=== PATIENT | female | born 1985 | race Caucasian/White ===

== ENCOUNTER 2021-04-14 01:17 | Day surgery (SDC) | payer OTHER, SELFPAY ==
[2021-04-08 12:42] VITALS: BMI 25.8
[2021-04-14] VITALS (10 sets, daily range): BP systolic 116–131; BP diastolic 71–92; PULSE 63–88; RESP 10–19; TEMP 36.2–36.6; O2SAT 100
--- NOTE | 2021-04-14 12:17 | PM.IMHP ---
H&P: HPI History of Present Illness Date/Time: 04/14/21 12:17 35 y/o interested in permanent contraception. She also has heavy menses when not on a control pill. She is an occasional smoker, and I have advised her not to use a combined contraceptive. Chief Complaint: Here to have tubes tied and endometrial ablation Review of Systems Review of Systems: All systems reviewed & are unremarkable except as noted in HPI and below PMFSH Surgical History Surgical History History of delivery History of cholecystectomy Social History Social History Smoking packs per day: 0.5 Smoking cigarettes per day: 10.0 Years smoked: 10 Smoking pack-years: 5.00 Smoking status: Current some day smoker Tobacco type: cigarettes and e-cigarettes/vaping Smoking end date: 07/03/16 Alcohol intake: current Substance use: never Living arrangements: with family Spiritual care concerns: No Meds Home Medications and Allergies Home Medications Medication Instructions Recorded Confirmed Type bupropion HCl 75 mg PO DAILY 04/08/21 04/08/21 History norgestimate-ethinyl estradiol 1 tablet PO DAILY 04/08/21 04/08/21 History [Sprintec (28)] Allergies Allergy/AdvReac Type Severity Reaction Status Date / Time No Known Allergies Allergy Unverified 11/16/18 12:06 Exam Const: Orientation/consciousness: patient oriented x3 Other: Well-developed, well-nourished female in no acute distress. Neck: Thyroid: thyroid normal Lymphatic: no lymphadenopathy noted (in neck, axilla or inguinal nodes) Resp: Effort & Inspection: normal respiratory effort Auscultation: clear to auscultation bilaterally Cardio: Rate: regular rate Rhythm: regular rhythm Heart sounds: S1 normal heart sound present and S2 normal heart sound present GI: Other: ABD: Soft, nontender, nondistended. No guarding or rebound tenderness. No hepatosplenomegaly. : General: Yes no CVA tenderness Other: External genitalia: normal female hair distribution, without lesion. Urethral meatus: no lesion, non prolapsed. Bladder: no mass, nontender Vagina: well-estrogenized, without lesion or discharge. No cystocele or rectocele. Cervix: no lesion or discharge. Uterus: small, anteverted, freely mobile, nontender Adnexa: no mass or tenderness. Anus/perineum: no lesions, nontender Back/Spine/Pelvis: Back: no CVA tenderness Skin: General skin exam: normal color and no rashes or lesions noted Neuro: General: patient oriented x3 Extrem: Other: Extremities: nontender with no edema Psych: Mental Status: mental status grossly normal Affect: normal affect Assessment and Plan Assessment and plan (1) Menometrorrhagia: Code(s): N92.1 - Excessive and frequent menstruation with irregular cycle Status: Acute Assessment and Plan: A: Menometrorrhagia with desired sterility. P: We have reviewed her options in detail. She understands there are temporary methods of contraception available to her. She understands that there are nonsurgical options as well as surgical options. She understands that tubal ligation will render her permanently sterile. She understands that there is a failure rate associated with tubal ligation, as well as an inherent ectopic gestation risk. Furthermore, she understands risks of surgery to include risks of anesthesia, risks of pain, infection, bleeding, blood products, thromboembolic phenomena and damage to adjacent structures such as bowel, bladder, ureters, blood vessels and nerves. She understands all these risks and elects to proceed with laparoscopic bilateral tubal ligation, hysteroscopy, dilation and sharp curettage and endometrial ablation. She has received the [employer] pamphlet on surgical sterilization. 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
[2021-04-14] MEDS: ACETAMINOPHEN 500 MG TABLET 1000 MG PO (13:10)
[2021-04-14] MEDS: KETOROLAC 15 MG/ML VIAL (*BKC) IV PUSH (13:20)
[2021-04-14] MEDS: LACTATED RINGERS 1,000 ML 30 ML IV CONT ×2 (13:22→15:45)
--- NOTE | 2021-04-14 13:43 | P.PNAN_ITS ---
Anes - Initial Pre Proc Eval Procedure: Operation Date: 04/14/21 14:30 Proposed Procedures p Laparoscopic Bilateral Tubal Sterilization with Fallopian Rings, - Abram Pugh MD s Hysteroscopy, Dilation and Curettage with Rosalinda Endometrial Ablation - Abram Pugh MD Date/Time: 04/14/21 13:43 Surgeon: Abram Pugh MD Pre Op Diagnosis: desires sterilization, irregular bleeding Patient Data Age: 35 Gender: F Height: 1.65 m Weight: 71.8 kg Last Vital Signs Temp 97.8 F 04/14/21 13:24 Pulse 88 04/14/21 13:24 BP 122/78 04/14/21 13:24 Pulse Ox 100 04/14/21 13:24 Allergies Allergy/AdvReac Type Severity Reaction Status Date / Time No Known Allergies Allergy Unverified 04/14/21 12:58 Home Medications Medication Instructions Recorded Confirmed Type bupropion HCl 75 mg PO DAILY 04/08/21 04/14/21 History norgestimate-ethinyl estradiol 1 tablet PO DAILY 04/08/21 04/14/21 History [Sprintec (28)] Patient hx anesthesia problems: none Family hx anesthesia problems: none Results Review: All pre-operative results and documents have been reviewed as part of the pre-operative evaluation. [facility] Past Medical History Medical History (Updated 04/14/21 @ 13:42 by David Sibley MD) Anxiety Surgical History Surgical History History of delivery History of cholecystectomy Social History Social History Smoking packs per day: 0.5 Smoking cigarettes per day: 10.0 Years smoked: 10 Smoking pack-years: 5.00 Smoking status: Current some day smoker Tobacco type: cigarettes and e-cigarettes/vaping Smoking end date: 07/03/16 Alcohol intake: current Substance use: never Living arrangements: with family Spiritual care concerns: No Anes - Eval Final PreProcedure Day of Procedure 04/14/21 13:43 Patient weight: normal Heart: regular rate and rhythm Lungs: clear to auscultation Airway: Mallampati scale class II Neurological: alert and oriented Last oral intake: >/= 8 hours ASA classification: II Anesthetic plan: proceed Anesthesia type and monitoring: general ETT and standard monitoring Results Review: All pre-operative results and documents have been reviewed as part of the pre-operative evaluation. Informed Consent: The patient's anesthetic plan and its attendant risks and benefits were discussed with the patient/family/POA. Questions were solicited and answers provided to the satisfaction of the patient/family/POA.
--- NOTE | 2021-04-14 14:26 | WPDHPUPDATE1 ---
History and Physical Update Update Date/Time: 04/14/21 14:26 History and Physical has been reviewed, including an updated exam of the patient. There are NO changes in the patient's condition. Risks, benefits, and alternatives have been discussed and questions answered. Patient agrees to proceed with procedure.
[2021-04-14] MEDS: LIDOCAINE HCL 1% PF 30 ML VIAL 10 ML INFILTRATE (15:22)
--- NOTE | 2021-04-14 15:39 | W.PM.PROC2 ---
Procedure Note - Detailed Date of Procedure 04/14/21 Pre-op Diagnosis Menometrorrhagia Desired sterility Post-op Diagnosis same Procedure Performed Laparoscopic bilateral tubal ligation with Falope rings Hysteroscopy Dilation and sharp curettage Endometrial ablation Surgeon Abram Pugh MD Anesthesia general and local (1% lidocaine) Findings Unremarkable vermiform appendix. Normal-appearing uterus, tubes and ovaries. The uterus sounded to a depth of 8.5 cm with a cervical length of 3 cm. The endometrial cavity was unremarkable. Both tubal ostia were seen. Description of Procedure The patient was taken to the operating room where general endotracheal anesthesia was administered. She was prepared and draped in the usual sterile fashion in dorsal lithotomy position. The bladder was drained with a red rubber catheter. A sterile speculum was placed into the vagina. The anterior lip of the cervix was grasped with a single-tooth tenaculum. The acorn uterine manipulator was placed. The speculum was withdrawn. Gloves were changed and attention was turned the abdomen. An infraumbilical skin incision was made with a scalpel. The abdomen was tented and a 5mm bladeless trocar was advanced under direct laparoscopic visualization. Pneumoperitoneum was administered using carbon dioxide gas. A survey of the pelvis and abdomen revealed the findings noted above. A second skin incision was made in the midline above the symphysis pubis and an 8mm bladeless trocar was advanced under direct laparoscopic visualization. The fallopian tube on the right side was followed out to the fimbriated end for identification. It was then grasped in the midportion with the Falope ring applicator. The Falope ring was tented applied. A good loop of tube was noted to be distal to the ring. Hemostasis was excellent. The device was reloaded and the contralateral tube was similarly identified and ligated. An excellent application was noted here as well. A total of 4mL of 1% lidocaine was infiltrated into the serosa of the proximal tubes for postoperative anesthesia. The ports were withdrawn. The gas was allowed to escape. The skin incisions were reapproximated using interrupted subcuticular sutures of 4 0 Vicryl. Dermaflex was applied externally. Attention was redirected to the vagina, where the acorn manipulator was withdrawn. Ten mL of 1% lidocaine was administered in a paracervical block. The cervix was then gently dilated using Hegar dilators until an 8 mm dilator could be passed. Hysteroscopy was performed using sterile saline as a distention medium. Findings are as noted above. Sharp curettage was then performed, and endometrial curettings were collected on a Telfa pad and passed off to be sent to pathology. Finally, the the Rosalinda device was advanced and endometrial ablation commenced without difficulty. The device was withdrawn and a second look was taken using the hysteroscope. Excellent coverage of the endometrial cavity was noted. The tenaculum was removed. Hemostasis was excellent. Sponge, lap, needle and instrument counts were correct. The patient was awakened and taken to the recovery room in stable condition. I was present and scrubbed through the entire procedure. Implants Falope rings x 2 Estimated Blood Loss 5 Drains No Packing No Pathology yes (Endometrial curettings) Complications None Condition stable Disposition PACU
[2021-04-14] MEDS: fentaNYL CITRATE INJ (*CRX) 100 MCG/2 ML VIAL 25 MCG IV PUSH ×5 (16:01→17:38)
[2021-04-14] MEDS: oxyCODONE HCL (*CRX) 5 MG TAB IR PO (17:04)
== END 2021-04-14 18:15 | disposition home or self-care (01) ==
PROVIDERS: PCP Internal Medicine; Visit Provider Obstetrics & Gynecology
PROC: (CPT 58671; principal; 2021-04-14 14:30)
PROC: 0U5B8ZZ Destruction of Endometrium, Via Natural or Artificial Opening Endoscopic (ICD-10-PCS; CPT 58563; 2021-04-14 14:30)
DX: N92.1 Excessive and frequent menstruation with irregular cycle (principal); Z30.2 Encounter for sterilization; F41.9 Anxiety disorder, unspecified; Z87.891 Personal history of nicotine dependence
CPT/HCPCS: 58671; 58563; 88305; A4264; A9270; J1100; J1885; J2250; J2704; J2710; J3010; J7030; J7120

== ENCOUNTER 2021-12-14 13:45 | Emergency (ER) | payer SELFPAY ==
--- NOTE | ~2021-12-14 | XR_ITS ---
EXAMINATION: XR shoulder LT min 2V DATE: 12/14/2021 14:38 INDICATION: Left shoulder pain. TECHNIQUE: 4 views of left shoulder were obtained. COMPARISON: None. FINDINGS: Bone alignment is normal. No fracture. Joint spaces are well maintained. IMPRESSION: 1. Normal left shoulder. Reviewed, dictated and finalized at location B. IMPRESSION: 1. Normal left shoulder.
[2021-12-14 14:01] VITALS: BP 141/92; PULSE 77; RESP 16; TEMP 36.7; O2SAT 100
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
[2021-12-14] MEDS: CYCLOBENZAPRINE HCL 10 MG TABLET PO (14:41)
[2021-12-14] MEDS: KETOROLAC (*BKC) 60 MG/2 ML VIAL IM (14:41)
== END 2021-12-14 15:09 | disposition home or self-care (01) ==
PROVIDERS: Emergency Provider Emergency Medicine; PCP Internal Medicine
DX: S46.912A Strain of unspecified muscle, fascia and tendon at shoulder and upper arm level, left arm, initial encounter (principal); F41.9 Anxiety disorder, unspecified; Z87.891 Personal history of nicotine dependence; X50.9XXA Other and unspecified overexertion or strenuous movements or postures, initial encounter
CPT/HCPCS: 73030; 96372; 99283; A4565; A9270; J1885

== ENCOUNTER 2024-12-24 19:56 | Emergency (ER) | payer BC, SELFPAY ==
[2024-12-24 19:59] VITALS: BP 134/77; PULSE 79; RESP 18; TEMP 36.7; O2SAT 100
[2024-12-24 20:00] VITALS: BP 134/77; PULSE 79; RESP 18; TEMP 36.7; O2SAT 100
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
== END 2024-12-24 22:14 | disposition home or self-care (01) ==
PROVIDERS: Emergency Provider Registered Nurse
DX: Z04.89 Encounter for examination and observation for other specified reasons (principal); F41.9 Anxiety disorder, unspecified; Z87.891 Personal history of nicotine dependence
CPT/HCPCS: 99281